=== PATIENT | male | born 1940 | race Caucasian/White ===

== ENCOUNTER → 2020-03-28 11:02 | Outpatient (BNVA) | payer MEDICARE, OTHER, SELFPAY | PROVIDERS: Family Provider Family Medicine; PCP Family Medicine; Visit Provider Urology | DX: N40.1 Benign prostatic hyperplasia with lower urinary tract symptoms (principal); Z12.5 Encounter for screening for malignant neoplasm of prostate; R79.89 Other specified abnormal findings of blood chemistry | CPT/HCPCS: 81003; 84403; G0103 ==

== ENCOUNTER 2020-04-16 09:31 | Outpatient (CLI) | payer MEDICARE, OTHER, SELFPAY ==
--- NOTE | 2020-04-16 09:40 | CT_ITS ---
WS: [id number] Exam: CT chest wo con [id number] Date/Time of Exam: 04/16/2020 9:56 AM Reason For Exam: EMPHYSEMA, UNSPECIFIED, CHRONIC RESPIRATORY FAILURE, BRONCHI DLP: 839.[address] scans at [facility] use at least one of these dose optimization techniques: automat ed exposure control; mA and/or kV adjustment per patient size (includes targeted exams where dose is matched to clinical indication); or iterative reconstruction. The lungs are hyperinflated. Advanced emphysematous changes noted most marked in the upper lung zones . No suspicious pulmonary mass or nodule identified. No pleural or pericardial effusion. There is mil d dilatation of the ascending aorta measuring about 4.3 cm at greatest diameter. No significant media stinal or hilar lymphadenopathy. Degenerative changes and spondylosis the T-spine. No destructive bon e lesions are seen. Coronary artery calcifications. The chest wall is intact. Calcified stones in the gallbladder. CT/CT chest wo con [id number] IMPRESSION: 1. Advanced emphysematous changes most marked in the upper lung zones. 2. No sign of the pulmonary mass or significant lymphadenopathy in the chest. 3. Mild aneurysmal dilatation of the ascending aorta. 4. Calcified stones in the gallbladder noted as an incidental finding.
== END 2020-04-16 09:32 | disposition home or self-care (01) ==
LOC: RADWPI 09:37
PROVIDERS: PCP Family Medicine; Visit Provider Nurse Practitioner Family
DX: J43.9 Emphysema, unspecified (principal); J96.11 Chronic respiratory failure with hypoxia; J42 Unspecified chronic bronchitis; I71.2 Thoracic aortic aneurysm, without rupture
CPT/HCPCS: 71250

== ENCOUNTER → 2021-03-27 10:33 | Outpatient (BNVA) | payer MEDICARE, OTHER, SELFPAY | PROVIDERS: PCP Family Medicine; Visit Provider Urology | DX: N52.9 Male erectile dysfunction, unspecified (principal); N40.1 Benign prostatic hyperplasia with lower urinary tract symptoms | CPT/HCPCS: 84403 ==

== ENCOUNTER → 2021-04-09 12:39 | Outpatient (BNVA) | payer MEDICARE, OTHER, SELFPAY | PROVIDERS: PCP Family Medicine; Referring Provider Anesthesiology Pain Medicine; Visit Provider Specialist | DX: M79.641 Pain in right hand (principal); G56.11 Other lesions of median nerve, right upper limb; Z87.891 Personal history of nicotine dependence | CPT/HCPCS: 95908 ==

== ENCOUNTER → 2021-04-29 14:47 | Outpatient (BNVA) | payer MEDICARE, OTHER, SELFPAY | PROVIDERS: PCP Family Medicine; Visit Provider Urology | DX: N40.1 Benign prostatic hyperplasia with lower urinary tract symptoms (principal); R79.89 Other specified abnormal findings of blood chemistry | CPT/HCPCS: 81003; 84403 ==